=== PATIENT | male | born 1965 | race Caucasian/White ===

== ENCOUNTER 2019-09-14 09:40 | Inpatient (IN) ==
--- NOTE | 2019-08-24 15:15 | PAT Medication Instructions ---
Medication Instructions Date of Service August 24, 2019 Home Medications Medication Instructions Recorded dutasteride 0.5 mg capsule 0.5 mg PO DAILY #30 cap 07/08/19 bupropion HCl 150 mg 24 hr tablet, extended release 150 mg PO HS glipizide 5 mg tablet 5 mg PO BID rosuvastatin 10 mg tablet 10 mg PO DAILY trazodone 50 mg tablet 50 mg PO HS dutasteride 0.5 mg capsule 0.5 mg PO DAILY albuterol sulfate [ProAir HFA] 2 puff INHALATION QID PRN tamsulosin 0.4 mg PO HS Take morning of surgery With a small sip of water, OTHERWISE NOTHING TO EAT OR DRINK AFTER MIDNIGHT: rosuvastatin 10 mg tablet 10 mg PO DAILY dutasteride 0.5 mg capsule 0.5 mg PO DAILY albuterol sulfate [ProAir HFA] 2 puff INHALATION QID PRN (use if needed; please bring with you to hospital day of surgery if possible) Take evening before surgery bupropion HCl 150 mg 24 hr tablet, extended release 150 mg PO HS glipizide 5 mg tablet 5 mg PO BID trazodone 50 mg tablet 50 mg PO HS albuterol sulfate [ProAir HFA] 2 puff INHALATION QID PRN (if needed) tamsulosin 0.4 mg PO HS Other Notes If you have any questions please call us at [phone] or [phone] or [phone] or [phone]
--- NOTE | 2019-08-25 15:13 | Anesthesiology Consultation ---
Date of Service August 25, 2019 Assessment & Plan (1) Encounter for pre-operative examination: - Cardiology: 05/12/19: No cardiac complaints. No chest pain. Continued on same regimen. - Check BSG AM DOS Chart Review Chart Review: Acceptable Risk for Surgery and Patient seen in Pre Admission Testing Teaching & Discussion Pre-Anesthesia Teaching/Discussion Notes: Instructed NPO after midnight before surgery,except medications with 15 cc of water. Medication instructions provided according to the PAT guidelines. History Surgery Operation Date: 09/14/19 11:20 Proposed Procedures p Robotic Prostatectomy - Yomi Maxwell MD Height/Weight Height: 5 ft 6 in Weight: 95.6 kg Allergies Allergy/AdvReac Type Severity Reaction Status Date / Time No Known Allergies Allergy Verified 08/25/19 13:36 Medications Home Medications Medication Instructions Recorded Confirmed Last Taken bupropion HCl 150 mg 24 hr tablet, 150 mg PO HS 04/13/19 08/25/19 Unknown extended release glipizide 5 mg tablet 5 mg PO BID 04/13/19 08/25/19 Unknown rosuvastatin 10 mg tablet 10 mg PO DAILY 04/13/19 08/25/19 Unknown trazodone 50 mg tablet 50 mg PO HS 04/13/19 08/25/19 Unknown dutasteride 0.5 mg capsule 0.5 mg PO DAILY #30 cap 07/08/19 08/25/19 Unknown albuterol sulfate [ProAir HFA] 2 puff INHALATION QID PRN 08/19/19 08/25/19 Unknown tamsulosin 0.4 mg PO HS 08/19/19 08/25/19 Unknown Past Medical History Medical History (Updated 08/30/19 @ 08:59 by Bethany Quintero) Anxiety (Chronic) Arthritis (Chronic) Asthma (Chronic) stable Claustrophobia (Chronic) Depression (Chronic) Diabetes (Chronic) NIDDM Hypercholesteremia (Chronic) Prostate cancer (Chronic) Exercise / Class Metabolic Activity III < 4 Walking/Shop/Light housework Past Family History Family History Mother Diabetes Father Stroke Coronary heart disease CABG x 4 Brother Myocardial infarction Diabetes Brother Fibromyalgia Sister Diabetes Sister Diabetes Daughter No problems noted. Daughter No problems noted. Past Surgical History Surgical History H/O umbilical hernia repair (Resolved) History of prostate biopsy History of tonsillectomy (Resolved) Past Anesthesia History No Hx of Anesthesia Complications and No Family Hx of Anesthesia Complications History of PONV No Hx of PONV Social History Smoking Status: Former smoker tobacco type: cigarettes Smoking cigarettes per day: 1 PPD x 15 yrs;Quit 1999 Do You Dip or Chew Tobacco: No (HX OF IN HIGH SCHOOL, NONE CURRENT) Smoking End Date: SMOKED 20 YRS, QUIT 20 YRS AGO Hx Alcohol Use: No Hx Substance Use: No substance use type: does not use Review of Systems Patient denies chest pain, shortness of breath, dyspnea on exertion, joint pain, reflux, cough, wheezing, palpitations. Physical Exam Vital Signs VITALS BP 134/82 P 86 TEMP 98.2 SP02 94%RA RESP 16 PHYSICAL Full neck and c-spine range of motion. Full TMJ range of motion. TMD 3.5 finger breaths Mallampati Score 1 Dentition: full dentures upper/lower Lungs: clear throughout to auscultation Cardiac: regular rate and rhythm, no murmurs noted Spine: normal Carotid arteries: negative bruit Extremities: no edema Thin harden Testing Laboratory Results 08/25/19 15:22 08/25/19 15:22 Hemoglobin A1c 11.0 % (4.5-5.6) H 08/25/19 15:22 Blood Type O Positive 08/25/19 15:22 Antibody Screen NEGATIVE 08/25/19 15:22 08/25/19 Unknown Urine Culture - Final Urine,Clean Catch No growth - less than 1,000 colonies/mL. Electrocardiogram Date: 09/30/18 NSR at 67bpm. Cannot rule out anterior infarct (*ECHO done 09/30/18*) Chest X-Ray Date: 08/25/19 Findings: + NAD Echocardiogram Date: 09/30/18 EF 55-60%. No RWMA. Trace KS/TI/PI. Stress Test Date: 11/03/18 Type: nuclear (Lexiscan) Normal myocardial perfusion SPECT images without evidence of pharmacologically induced ischemia. LVEF 48%. No significant ST/T wave changes with lexiscan infusion.
[2019-08-25 15:47] LABS: Basophils # (auto) 0.05 K/uL (0-0.2); Basophils % (auto) 0.5 %; Eosinophils # (auto) 0.18 K/uL (0-0.5); Eosinophils % (auto) 1.9 %; Hematocrit (blood only) 46.8 % (42-52); Hemoglobin 16.4 g/dL (14.0-18.0); Immature Granulocytes # (auto) 0.02 K/uL (0.00-0.02); Immature Granulocytes % (auto) 0.2 %; Lymphocytes # (auto) 2.07 K/uL (1.2-3.4); Lymphocytes % (auto) 21.4 %; Mean Corpuscular Hemoglobin 30.8 pg (25-34); Mean Corpuscular Volume 87.8 fL (80-100); Mean Platelet Volume 10.3 fL (7.4-10.4); Monocytes # (auto) 0.69 K/uL (0.11-0.59); Monocytes % (auto) 7.1 %; Neutrophils # (auto) 6.66 K/uL (1.4-6.5); Neutrophils % (auto) 68.9 %; Platelet Count 157 K/uL (130-400); RDW Standard Deviation 41.8 fL (36.4-46.3); Red Blood Count 5.33 M/uL (4.7-6.1); White Blood Count 9.67 K/uL (4.8-10.8)
--- NOTE | 2019-08-25 15:47 | XRay Report ---
XR chest Pre-admission PA/Lat CLINICAL HISTORY: 54 years-old Male presenting with preoperative assessment. TECHNIQUE: PA and lateral views of the chest were obtained. COMPARISON: None. FINDINGS: Cardiomediastinal silhouette normal. Lungs and pleural spaces clear. Osseous structures normal. Upper abdomen normal. IMPRESSION: 1. No acute cardiopulmonary disease. Electronically signed by: Bj Lebron M.D. 08/25/2019 3:46 PM
[2019-08-25 17:17] LABS: Calcium 9.1 mg/dl (8.5-10.1); Creatinine Clr Calc Pharmacy 87.5 ml/min; Est GFR (African American) 94.8; Est GFR (Non-African American) 81.8; Potassium 3.9 mmol/L (3.5-5.1)
[2019-08-25 17:30] LABS: Beta-Hydroxybutyrate 2.06 mg/dl (0.2-2.81)
[2019-08-27 07:20] LABS: Estimated Average Glucose 269 mg/dl
[~2019-09-14 09:40] MED LIST: CEFAZOLIN 2000MG 2,000 MG/15 ML SYR IV SCH; HEPARIN SOD 5,000 UNIT/0.5 ML VIAL SQ SCH; LR 15ML/HR IV SCH; LR 500ML BOLUS IV SCH; MIDAZOLAM HCL 1 MG/ML 2ML VIAL ONE; fentaNYL citrate 100 MCG/2 ML VIAL ONE
--- NOTE | 2019-09-14 10:56 | History & Physical Bridge Note ---
Date of Service September 14, 2019 History & Physical Bridge Note I have examined the patient, reviewed the History & Physical and in the interval since the performance of the History & Physical I have noted the following changes of clinical significance: no changes noted
[2019-09-14] MEDS ORDERED: BUPIVACAINE 0.5 % 5 MG/1 ML MPF 30ML VIAL ONE (12:17)
[2019-09-14] MEDS ORDERED: BELLADONNA/OPIUM SUPP 60 MG SUPP PR ONE (13:39)
[2019-09-14] MEDS ORDERED: FLOSEAL HEMOSTATIC MATRIX 10ML TOP ONE (13:52)
[2019-09-14] MEDS ORDERED: ACETAMINOPHEN 1000 MG/100 ML IV IV ONE (13:54)
[2019-09-14] MEDS ORDERED: HYDROmorphone INJ 2 MG/ML SYR/VIAL ONE (13:57)
[2019-09-14] MEDS ORDERED: PHENYLEPHRINE 100MCG/ML 5ML SYR ONE (14:00)
[2019-09-14] MEDS ORDERED: ROCURONIUM BROMIDE 10 MG/ML 5 ML VIAL ONE ×3 (14:00→15:49)
[2019-09-14] MEDS ORDERED: LARYING-O-JET KIT (LTA) ONE (14:00)
[2019-09-14] MEDS ORDERED: LIDOCAINE HCL 2% 2 ML VIAL/AMP(20MG/ML) INFIL ONE (14:00)
[2019-09-14] MEDS ORDERED: GLYCOPYRROLATE 0.2 MG/ML VIAL ONE (14:00)
[2019-09-14] MEDS ORDERED: ONDANSETRON INJ 2 MG/ML 2 ML VIAL ONE (14:00)
[2019-09-14] MEDS ORDERED: ePHEDrine sulfate 50 MG/ML SYR ONE (14:00)
[2019-09-14] MEDS ORDERED: NEOSTIGMINE METHYLSULFATE 5 MG/5 ML SYR ONE (14:00)
[2019-09-14] MEDS ORDERED: PROPOFOL IV EMULSION 10 MG/ML 20 ML VIAL IV ONE (14:00)
[2019-09-14] MEDS ORDERED: DEXAMETHASONE SOD INJ 4 MG/ML VIAL ONE (14:00)
[2019-09-14] MEDS ORDERED: ATROPINE SULFATE 0.1 MG/ML 10ML SYR IV PRN (14:18)
[2019-09-14] MEDS ORDERED: ONDANSETRON INJ 2 MG/ML 2 ML VIAL IV PRN (14:18)
[2019-09-14] MEDS ORDERED: fentaNYL citrate 100 MCG/2 ML VIAL IV PRN (14:18)
[2019-09-14] MEDS ORDERED: HYDROmorphone INJ 2 MG/ML SYR/VIAL IV PRN (14:18)
[2019-09-14] MEDS ORDERED: ePHEDrine sulfate 50 MG/ML AMP IV PRN (14:18)
[2019-09-14] MEDS ORDERED: BELLADONNA/OPIUM SUPP 60 MG SUPP PR PRN (14:21)
--- NOTE | 2019-09-14 17:05 | Operative Report ---
PG Post Operative Report Pre & Post Diagnosis Operation Date: 09/14/19 11:30 Pre-Op Diagnosis: Prostate Cancer Post-Op Diagnosis: Prostate Cancer I identified the patient and participated in the time-out.: Yes Procedure Operation Date: 09/14/19 11:30 Actual Procedures p Robotic Prostatectomy(Not Applicable) - Yomi Maxwell MD Surgeon Cuauhtemoc Maxwell MD Meat Washer Kimberley Ross; Sol Pastor Estimated Blood Loss 250 Findings Consistent with Post-Op Diagnosis Specimens Periprostatic fat Left obturator lymph node Right obturator lymph node Prostate and seminal vesicles Description of Procedure The patient was identified in the preoperative holding area, appropriate informed consents were reviewed and completed, and he was transported to the operating suite. Subcutaneous heparin was administered in the pre-operative holding area. Upon arrival in the operating suite, he received appropriate antibiotics and general anesthesia. He was positioned in dorsal lithotomy, a B&O suppository was inserted after digital rectal exam, and he was prepped and draped in standard fashion. A Cui catheter was inserted in the sterile field. A Veress needle was passed per umbilicus with uniform insufflation of the abdomen to 15mmHg. He was placed in steep Trendelenburg position. A periumbilical incision was then made to accommodate a 12mm Visiport with 10mm 0degree laparoscope. Inspection of the abdomen was carried out, and there was no evidence of traumatic entry or injury secondary to the Veress needle. After confirming a clear anterior abdominal wall, ports were subsequently placed in standard robotic prostatectomy fashion without incident. To begin the robotic portion of the case, the left lateral aspect of the sigmoid was mobilized off of the left pelvic side wall to allow the pouch of Onofre to be appropriately visualized. I then made an incision in the pouch of Onofre, overlying the seminal vesicles. Both SVs as well as the ampullae of the vasa were entirely dissected, with the vasa transected 3cm from the prostate. The medial umbilical ligaments were then controlled with bipolar electrocautery just inferior to the umbilicus. Following cauterization, they were divided utilizing monopolar cautery. A peritoneal incision was carried from this location to the medial aspect of the internal inguinal rings bilaterally with care to avoid opening through the ring. This incision was concluded when the vas deferens was reached. Dissection of the bladder and prostate off of the posterior aspect of the pubic arch was completed allowing full visualization of the prostate. The fat overlying the prostate was removed en bloc and passed off the table as a specimen labeled "periprostatic fat". The endopelvic fascia was cleared during this portion of the procedure, and subsequently opened - first on the right and then the left. The incision through the endopelvic fascia began near the prostate-bladder junction and was carried to the apex with extreme care to preserve all lateral levator musculature as well as the periurethral musculature and sphincter complex. The puboprostatic ligaments were thinned slightly bilaterally before placing a 0-Vicryl figure of 8 stitch around the DVC. The lymph node dissection was then conducted. External iliac vessels were identified on the pelvic side wall. The packet of fat and lymphatic tissue that resides just under the iliac vein was elevated and off of the vein with a split and roll technique. The packet was dissected laterally to the circumflex vein and distally to the obturator nerve which was preserved. The proximal aspect of the packet was carried towards the bifurcation of the iliac vessels. A combination of monopolar and bipolar cautery were used to assist with control. Clips were placed at the proximal and distal aspects of the packet prior to transection. After completing the dissection on both sides, the packets were collected and passed off of the table as specimens labeled "pelvic lymph nodes". My attention then returned to the prostate, with identification of the bladder neck aided by gentle traction on the Cui catheter and lateral to medial pressure at the presumed level of the bladder neck with the robotic instruments. An anterior cystotomy was made, the Cui balloon deflated and the catheter guided through the incision to allow anterior retraction. I attempted to preserve maximal bladder neck musculature as I circumferentially dissected around the bladder neck. After incision through the posterior aspect of the mucosa, the dissection was carried through detrusor muscle until the bilateral ampullae of the vasa were identified. The previously dissected vasa and SVs were brought through the incision and used to elevated the prostate anteriorly. A posterior plane behind the prostate was then developed - splitting Denonvilliers's fascia. This dissection was carried as far as possible towards the apex as well as far as possible laterally. An incision in the lateral prostatic fascia was then made bilaterally to facilitate control of the vascular pedicles. The pedicles were each controlled with a series of Weck clips. The neurovascular bundles were identified with an preserved bilaterally with a slight more cautious approach on the left. The apical attachments of the prostate were remaining at that stage. The DVC was divided with bipolar electrocautery. Cristina-prostatic tissue incised with sharp dissection and monopolar cautery. Maximal urethral length was preserved before dividing the urethra sharply. The prostate was entirely freed at that point, and collected in an EndoCatch bag before being moved out of the field of vision. Hemostasis was confirmed and anastomosis of the bladder and urethra was completed utilizing a double armed V- Lock stitch. A new Cui catheter was inserted and the anastomosis tested with irrigation. There was no evidence of leak. FloSeal coagulant was placed around the anastomosis. A giorgi style stitch was used to marsupialize the area of the lymph node dissections. The robot was undocked, the specimen extracted through expansion of the cristina- umbilical camera port. The fascia was closed with a series of 0-PDS figure of 8 stitches. The right certified medical technician assistant port was closed in two layers - with a figure of 8 0-Vicryl to reapproximate the fascia followed by 4-0 Monocryl to close the skin. Monocryl was used to close all other skin incisions. All wounds were dressed with Dermabond. The case was concluded and the patient taken to the PACU in stable condition. Kimberley Ross and Sol Pastor assisted for the entire case from incision to closure. I attest to the content of the Intraoperative Record and any orders documented therein. Any exceptions are noted below.
[2019-09-14] MEDS ORDERED: INSULIN ASPART PER UNIT ONE (17:18)
[2019-09-14] MEDS ORDERED: INSULIN HUMAN REGULAR SC ONE (17:19)
[2019-09-14 17:38] LABS: Basophils # (auto) 0.02 K/uL (0-0.2); Basophils % (auto) 0.1 %; Eosinophils # (auto) 0.01 K/uL (0-0.5); Eosinophils % (auto) 0.1 %; Hematocrit (blood only) 44.5 % (42-52); Hemoglobin 15.5 g/dL (14.0-18.0); Immature Granulocytes # (auto) 0.06 K/uL (0.00-0.02); Immature Granulocytes % (auto) 0.4 %; Lymphocytes % (auto) 5.4 %; Mean Corpuscular Hemoglobin 31.3 pg (25-34); Mean Corpuscular Volume 89.9 fL (80-100); Mean Platelet Volume 10.1 fL (7.4-10.4); Monocytes # (auto) 0.38 K/uL (0.11-0.59); Monocytes % (auto) 2.3 %; Neutrophils # (auto) 15.31 K/uL (1.4-6.5); Neutrophils % (auto) 91.7 %; Platelet Count 181 K/uL (130-400); RDW Standard Deviation 42.4 fL (36.4-46.3); Red Blood Count 4.95 M/uL (4.7-6.1); White Blood Count 16.68 K/uL (4.8-10.8)
[2019-09-14 17:48] LABS: Mean Corpuscular Hgb Conc 34.8 g/dL (32-36)
[2019-09-14 17:57] LABS: BUN Creatinine Ratio 10.6 (10-20); Calcium 8.6 mg/dl (8.5-10.1); Creatinine Clr Calc Pharmacy 81.2 ml/min; Est GFR (African American) 87.5; Est GFR (Non-African American) 75.5; Potassium 5.1 mmol/L (3.5-5.1)
--- NOTE | 2019-09-14 17:57 | Anesthesiology Progress Note ---
Date of Service September 14, 2019 Anesthesia Post Procedure Vital Signs Vital Signs: Temp Pulse Pulse Resp BP Pulse Ox 09/14/19 17:50 77 15 126/75 92 09/14/19 17:40 74 15 122/74 93 09/14/19 17:30 75 23 117/74 93 09/14/19 17:20 85 10 L 148/89 H 92 09/14/19 17:12 36.9 C 78 14 119/82 95 09/14/19 10:15 36.9 C 91 H 18 134/84 96 Transfer of Care Handoff Completed per policy Notes Mental Status: alert / awake / arousable and participated in evaluation Patient Amnestic to Procedure: Yes Nausea / Vomiting: adequately controlled Pain: adequately controlled Airway Patency, RR, SpO2: stable & adequate BP & HR: stable & adequate Hydration State: stable & adequate Anesthetic Complications: no major complications apparent and Pt Satisfied with anesthetic care
[2019-09-14] MEDS ORDERED: ALBUTEROL HFA 8 GM INHALER INH PRN (18:16)
[2019-09-14] MEDS ORDERED: OXYCODONE HCL IR 5 MG TAB (IMMEDIATE RELEASE) PO PRN ×2 (18:16)
[2019-09-14] MEDS ORDERED: MoRPHine SULFATE 2 MG/ML CARP IV PRN (18:16)
[2019-09-14] MEDS ORDERED: MoRPHine SULFATE 4 MG/ML 1 ML CARP\\VIAL IV PRN (18:16)
[2019-09-14] MEDS ORDERED: PHARMACY GLYCEMIC MGMT CONSULT PRN (18:49)
[2019-09-14] MEDS ORDERED: INSULIN HUMAN NPH SC ONE (19:00)
[2019-09-14] MEDS: INSULIN ASPART 100 UNITS/ML 3 ML PEN SC SCH ×2 (19:02→21:36)
[2019-09-14] MEDS ORDERED: GLUCOSE 10 TABS/TUBE PO PRN (19:15)
[2019-09-14] MEDS ORDERED: CARBOHYDRATES FOR HYPOGLYCEMIA PO PRN (19:15)
[2019-09-14] MEDS ORDERED: GLUCAGON FOR INJ 1 MG VIAL IM PRN (19:15)
[2019-09-14] MEDS ORDERED: GLUCOSE 40% GEL 15 GM TUBE PO PRN (19:15)
[2019-09-14] MEDS ORDERED: DEXTROSE 50% 50 ML SYRINGE IV PRN (19:15)
[2019-09-14] MEDS: ONDANSETRON INJ 2 MG/ML 2 ML VIAL IV PRN (19:52)
[2019-09-14] MEDS ORDERED: OXYBUTYNIN CHLORIDE 5 MG TAB PO PRN (20:19)
[2019-09-14] MEDS: ACETAMINOPHEN 1,000 MG/100 ML VIAL IV SCH (20:26)
[2019-09-14] MEDS: CEFAZOLIN 2000MG 2,000 MG/15 ML SYR IV SCH (20:26)
[2019-09-14] MEDS: BuPROPion XL 150 MG TABCR PO SCH (21:33)
[2019-09-14] MEDS: TRAZODONE HCL 50 MG TAB PO SCH (21:33)
[2019-09-14] MEDS: HEPARIN SOD 5,000 UNIT/0.5 ML VIAL SQ SCH (21:34)
[2019-09-14] MEDS: LACTATED RINGER'S 1,000 ML IV SCH (21:41)
[2019-09-15] MEDS: INSULIN ASPART 100 UNITS/ML 3 ML PEN SC SCH ×6 (00:13→20:54)
[2019-09-15] MEDS: CEFAZOLIN 2000MG 2,000 MG/15 ML SYR IV SCH (03:26)
[2019-09-15] MEDS: ONDANSETRON INJ 2 MG/ML 2 ML VIAL IV PRN (03:32)
[2019-09-15] MEDS: LACTATED RINGER'S 1,000 ML IV SCH ×3 (03:33→23:07)
[2019-09-15] MEDS: ACETAMINOPHEN 1,000 MG/100 ML VIAL IV SCH ×2 (03:38→11:07)
[2019-09-15 07:47] LABS: Basophils # (auto) 0.01 K/uL (0-0.2); Basophils % (auto) 0.1 %; Eosinophils # (auto) 0.01 K/uL (0-0.5); Eosinophils % (auto) 0.1 %; Hemoglobin 14.7 g/dL (14.0-18.0); Immature Granulocytes # (auto) 0.06 K/uL (0.00-0.02); Immature Granulocytes % (auto) 0.3 %; Lymphocytes # (auto) 1.57 K/uL (1.2-3.4); Lymphocytes % (auto) 8.8 %; Mean Corpuscular Hemoglobin 30.5 pg (25-34); Mean Corpuscular Hgb Conc 34.2 g/dL (32-36); Mean Corpuscular Volume 89.2 fL (80-100); Mean Platelet Volume 10.3 fL (7.4-10.4); Monocytes # (auto) 1.67 K/uL (0.11-0.59); Monocytes % (auto) 9.3 %; Neutrophils % (auto) 81.4 %; Platelet Count 183 K/uL (130-400); RDW Coefficient of Variation 13.3 % (11.5-14.5); RDW Standard Deviation 43.3 fL (36.4-46.3); Red Blood Count 4.82 M/uL (4.7-6.1); White Blood Count 17.92 K/uL (4.8-10.8)
--- NOTE | 2019-09-15 08:02 | Urology Progress Note ---
Date of Service September 15, 2019 Assessment & Plan (1) Prostate cancer: POD #1 s/p RALP N/V overnight zofran ambulation sips only strict BG control Subjective nausea/vomiting overnight pain is ok no fevers/chills urine output ok Review of Systems Review of Systems: All systems reviewed & are unremarkable except as noted in HPI & below Physical Exam Physical Exam: Incisions appropriate abd soft - slightly distended at most no edema urine ok - blood tinged Results & Data Vital Signs (Past 12 Hours) Vital Signs Temp Pulse Pulse Resp BP Pulse Ox 09/15/19 07:14 37.1 C 73 16 117/79 93 09/15/19 04:00 36.5 C 83 18 148/83 H 95 09/14/19 22:50 36.5 C 76 18 108/68 96 09/14/19 22:37 66 97 09/14/19 21:11 36.5 C 73 16 111/75 94 09/14/19 20:15 36.4 C L 72 16 117/80 96 PG Care Time/CCT Total # of Minutes Spent Total Time Spent with Patient: Total time spent is greater than 50% in coordination of care (as documented) at patient's floor/unit and/or counseling patient:
[2019-09-15 08:20] LABS: BUN Creatinine Ratio 11.6 (10-20); Calcium 8.8 mg/dl (8.5-10.1); Creatinine Clr Calc Pharmacy 91.2 ml/min; Est GFR (African American) 100.7; Est GFR (Non-African American) 86.9
[2019-09-15] MEDS ORDERED: INSULIN HUMAN NPH SC STA (08:31)
--- NOTE | 2019-09-15 08:39 | Pharmacy Report ---
Pharmacy Glycemic Short Note 2 - Date of Service September 15, 2019 - Glycemic Short BSG Results (Last 24 hours): 09/14/19 09/14/19 09/14/19 09:59 17:16 17:26 Glucose 284 H POC Glucose 173 H 249 H 09/14/19 09/14/19 09/14/19 17:56 19:01 21:35 Glucose POC Glucose 259 H 265 H 239 H 09/15/19 09/15/19 09/15/19 00:03 03:41 07:15 Glucose 184 H POC Glucose 224 H 189 H 09/15/19 08:03 Glucose POC Glucose 159 H OUTPATIENT ANTIDIABETIC REGIMEN: * Glipizide 5mg PO BID ASSESSMENT: * Mr. Guevara is a type II diabetic POD: 1 prostatectomy. A1C of 11% indicative of poor outpt glycemic management. BSGs today are still elevated, likely steroid induced + underlying endogenous insulin resistance. We will provide a one time NPH dose of 16u with breakfast. PLAN FOR INPATIENT GLYCEMIC CONTROL: * Hold outpatient oral diabetes medications * Basal insulin * NPH as above * Bolus insulin * NovoLog per scale ACHS or Q6hrs while NPO * Goal Range: Low 110 mg/dL - High 140 mg/dL * Correction Factor: 20 mg/dL/unit * Nutritional / Prandial insulin per carb ratio of 1 unit per 7 grams CHO consumed
[2019-09-15] MEDS: ROSUVASTATIN CALCIUM 10 MG TAB PO SCH (09:43)
[2019-09-15] MEDS: HEPARIN SOD 5,000 UNIT/0.5 ML VIAL SQ SCH ×2 (09:43→20:53)
[2019-09-15] MEDS: TRAZODONE HCL 50 MG TAB PO SCH (20:53)
[2019-09-15] MEDS: BuPROPion XL 150 MG TABCR PO SCH (20:54)
[2019-09-16 07:12] LABS: Basophils # (auto) 0.04 K/uL (0-0.2); Basophils % (auto) 0.3 %; Eosinophils # (auto) 0.12 K/uL (0-0.5); Eosinophils % (auto) 0.8 %; Hematocrit (blood only) 40.6 % (42-52); Hemoglobin 13.7 g/dL (14.0-18.0); Immature Granulocytes # (auto) 0.04 K/uL (0.00-0.02); Immature Granulocytes % (auto) 0.3 %; Lymphocytes # (auto) 2.52 K/uL (1.2-3.4); Lymphocytes % (auto) 17.7 %; Mean Corpuscular Hemoglobin 30.4 pg (25-34); Mean Corpuscular Hgb Conc 33.7 g/dL (32-36); Mean Corpuscular Volume 90.2 fL (80-100); Mean Platelet Volume 9.9 fL (7.4-10.4); Monocytes # (auto) 1.27 K/uL (0.11-0.59); Monocytes % (auto) 8.9 %; Neutrophils # (auto) 10.24 K/uL (1.4-6.5); Platelet Count 139 K/uL (130-400); RDW Coefficient of Variation 13.7 % (11.5-14.5); RDW Standard Deviation 44.8 fL (36.4-46.3); White Blood Count 14.23 K/uL (4.8-10.8)
[2019-09-16 07:47] LABS: BUN Creatinine Ratio 11.7 (10-20); Calcium 8.3 mg/dl (8.5-10.1); Creatinine Clr Calc Pharmacy 106.6 ml/min; Est GFR (Non-African American) 98.4; Potassium 3.6 mmol/L (3.5-5.1)
--- NOTE | 2019-09-16 08:02 | Urology Progress Note ---
Date of Service September 16, 2019 Assessment & Plan (1) Prostate cancer: pod #2 s/p RALP cont ambulation advance diet likely d/c home this afternoon Subjective doing well ambulated passing flatus no pain Review of Systems Review of Systems: All systems reviewed & are unremarkable except as noted in HPI & below Physical Exam Physical Exam: incisions appropriate urine clear Results & Data Vital Signs (Past 12 Hours) Vital Signs Temp Pulse Resp BP BP Pulse Ox 09/16/19 07:13 37.3 C 88 16 137/77 92 09/15/19 23:10 37.2 C 87 18 126/74 92 PG Care Time/CCT Total # of Minutes Spent Total Time Spent with Patient: Total time spent is greater than 50% in coordination of care (as documented) at patient's floor/unit and/or counseling patient:
[2019-09-16] MEDS ORDERED: INSULIN HUMAN NPH SC STA (08:43)
[2019-09-16] MEDS: LACTATED RINGER'S 1,000 ML IV SCH (08:50)
[2019-09-16] MEDS: INSULIN ASPART 100 UNITS/ML 3 ML PEN SC SCH ×3 (08:53→18:20)
[2019-09-16] MEDS: HEPARIN SOD 5,000 UNIT/0.5 ML VIAL SQ SCH (08:53)
[2019-09-16] MEDS: ROSUVASTATIN CALCIUM 10 MG TAB PO SCH (08:53)
--- NOTE | 2019-09-16 11:36 | Pharmacy Report ---
Pharmacy Glycemic Short Note 2 - Date of Service September 16, 2019 - Glycemic Short BSG Results (Last 24 hours): 09/15/19 09/15/19 09/15/19 12:04 17:17 20:43 Glucose POC Glucose 177 H 184 H 187 H 09/16/19 09/16/19 06:56 08:06 Glucose 161 H POC Glucose 156 H OUTPATIENT ANTIDIABETIC REGIMEN: * Glipizide 5mg PO BID ASSESSMENT: * Mr. Guevara is a type II diabetic POD: 2 prostatectomy. * Fasting BSG slightly elevated today. Post prandial BSGs yesterday were also elevated. * One-time dose of NPH 12 units given this AM since diet was advanced to T2DM. PLAN FOR INPATIENT GLYCEMIC CONTROL: * Hold outpatient oral diabetes medications * Basal insulin * NPH as above * Bolus insulin: continued * NovoLog per scale ACHS or Q6hrs while NPO * Goal Range: Low 110 mg/dL - High 140 mg/dL * Correction Factor: 20 mg/dL/unit * Nutritional / Prandial insulin per carb ratio of 1 unit per 7 grams CHO consumed Discharge Recommendations: * HbA1c = 11% indicative of poor outpt glycemic management. Goal A1c is less than 7%. * Recommend adding metformin (if not contra-indicated) + basal insulin such as Lantus 10 units once daily in the morning. * Metformin dose recommendation is XR 500mg PO daily with evening meal with titration upwards. * Recommend close up with outpatient provider for dose titration and basal insulin dose adjustments.
[2019-09-16 15:13] VITALS: BP 124/64; PULSE 90; TEMP 98.8; O2SAT 94
--- NOTE | 2019-09-27 10:30 | Discharge Summary ---
Date of Service September 27, 2019 Admission HPI Per Admitting Provider see H&P Admission Exam Per Admitting Provider see H&P Principal Diagnosis prostate cancer Discharge Exam Constitutional + obese Neck neck extension not limited Cardiovascular Rate/Rhythm: regular rate and regular rhythm Neurologic moves all extremities Psychiatric Orientation: alert and oriented x 3 Discharge Data Allergies Allergy/AdvReac Type Severity Reaction Status Date / Time No Known Allergies Allergy Verified 09/14/19 10:05 Procedures Performed Operation Date: 09/14/19 11:30 Actual Procedures p Robotic Prostatectomy(Not Applicable) - Yomi Maxwell MD Hospital Course (1) Prostate cancer: Pt was admitted for planned robotic prostatectomy with Dr. Maxwell. Pt was discharged on pod #2 with no complications. cont ambulation advance diet likely d/c home this afternoon Total Time Total Time Spent Total Time Spent (In Minutes): 10 Total Time Includes: Examination of the Patient, Discharge Planning, Medication Reconciliation and Communication With Other Providers Discharge Plan Discharge Items Patient Disposition: Home - Self-Care Reason For Visit: Prostate Cancer Discharge Diagnosis: prostate cancer Activity: Per Instructions section Lifting: No more than 25 pounds Sexual Activity: Wait until after follow-up appointment Exercise/Sports: Wait until after follow-up appointment Driving/Machine Use: Resume 1 day after discharge Non-emergency contact: Urologist Call non-emergency contact if: your pain is concerning for you, your temperature is above 101, your wound has increased redness, your wound has increased drainage and your wound pain has increased Follow-up/Referrals: Dominic Francois [Primary Care Provider] - Diet: Regular Addtl Attending Provider Instructions: Please take all medications as prescribed and keep all follow-ups as scheduled. Please call our office at [phone] with any questions, concerns or need to reschedule appointments for any reason. We are happy to assist you We have sent an antibiotic to your pharmacy of choice. Please begin antibiotic as prescribed the day BEFORE your scheduled voiding trial at [facility]. Please continue antibiotic every 12 hours through the day AFTER your voiding trial. Activity: \u2022 We recommend having someone with you for the first few days after surgery to help care for you. \u2022 For the first 2 weeks after surgery, we would like you to get up and walk around your house. However, we recommend limit physical activity that would increase your heart rate. This will allow your body to rest and heal. Take naps if you feel tired. \u2022 Don't lift anything heavier than 10 pounds, mow the law or ride a bicycle until your follow-up appointment. \u2022 Please avoid long car rides. Home Care: \u2022 Unless directed otherwise, drink 6 to 8 glasses of water a day (enough to keep your urine light colored). This will also help keep a healthy flow of urine. \u2022 We recommend using a stool softener for the first two weeks to avoid constipation. Cui Catheter or Suprapubic Catheter care: \u2022 Keep the catheter well secured with either a leg back or leg strap with large bag. \u2022 Empty your bag when it's about half full. You may notice some blood in the bag. This is normal after surgery and while the catheter is in place. \u2022 Use mild soap (such as Dove or Dial) and water to wash the catheter and the head of your penis daily, or more frequently if needed. \u2022 Return to your normal diet, we encourage good protein intake to promote healing. \u2022 You may shower as normal. Please avoid tub baths or soaking until catheter removed and incisions well healed. \u2022 Wearing sweat pants while you have the catheter is recommended, they will be more comfortable. Follow-up \u2022 Your follow up appointments for having your catheter removed, and follow up with your physician should already be scheduled. If you have any questions regarding this, please contact our office. \u2022 Your final pathology report will be discussed at your physician follow-up appointment. Call [facility] at [phone] right away if you have any of the following: \u2022 Chest pain or trouble breathing (call 911 or go to the hospital) \u2022 Fever of [id number] or higher, uncontrolled vomiting \u2022 Heavy bleeding, clots, or bright red blood from the catheter \u2022 Catheter that falls out or stops draining \u2022 Foul-smelling discharge from your catheter \u2022 Redness, swelling, warmth, or increased pain at your incision site \u2022 Drainage, pus, or bleeding from your incision Pending Studies at Discharge: Yes (pathology) Stand-Alone Forms: My [facility] Medications and DC Order Prescriptions: New ciprofloxacin HCl 500 mg tablet 500 mg PO Q12H Qty: 6 RF: 0 docusate sodium [Colace] 100 mg capsule 100 mg PO BID Qty: 60 RF: 0 oxycodone-acetaminophen [Percocet] 5-325 mg tablet 1 tab PO TID PRN (Reason: pain) Qty: 14 RF: 0 Continued bupropion HCl 150 mg tablet extended release 24 hr 150 mg PO HS RF: 0 rosuvastatin [Crestor] 10 mg tablet 10 mg PO DAILY RF: 0 glipizide 5 mg tablet 5 mg PO BID RF: 0 trazodone 50 mg tablet 50 mg PO HS RF: 0 albuterol sulfate [ProAir HFA] 90 mcg/actuation Hfa Aerosol Inhaler 2 puff INHALATION QID PRN (Reason: ASTHMA) RF: 0 Discontinued dutasteride 0.5 mg capsule 0.5 mg PO DAILY Qty: 30 RF: 11 tamsulosin 0.4 mg capsule 0.4 mg PO HS RF: 0 Discharge Orders: Discharge Order (Routine); Ordered 09/16/19 Ordered By: Kimberley Antonio/Other Patient Handouts: Diabetes Construction Manager Complications, Diabetes Resources, Diabetes Healthy Meals, Diabetes Carbs, Diabetes Exercise Benefits, Diabetes Activity Tips, Diabetes Living Life, Diabetes Manage A1C Test Admission Data Admit Date/Time: 09/14/19 16:51 Attending Provider: Yomi Maxwell Admit Provider: Yomi Maxwell Primary Care Provider: Dominic Francois Other Interventions: Discharge Summary Assessment (RN) Last Done: 09/16/19 14:09 DC Date/Time DO NOT enter until pt leaves facility: 09/16/19 19:17
== END 2019-09-16 19:17 | disposition home or self-care (01) | DRG 708 ==
LOC: ASU 09:40 → 3W 16:51